=== PATIENT | female | born 1950 | race African-American/Black ===

== ENCOUNTER 2017-04-05 08:57 | Outpatient (CLI) | payer MEDICARE, MEDICAID ==
--- NOTE | 2017-04-05 14:05 | Diagnostic Imaging Report ---
Indication: SCREEN Technique: Bilateral Craniocaudal and mediolateral oblique views were obtained. Cleavage view also obtained. Comparison: 03/30/2013 Findings: The breasts demonstrate scattered fibroglandular densities. No parenchymal asymmetry nor architectural distortion. . No dominant masses nor suspicious clustered microcalcifications. No skin thickening nor nipple retraction. No axillary adenopathy. No significant interim change. Impression: No mammographic evidence of malignancy. Routine annual rescreening recommended. BI-RADS category one-negative. Breast density BI-RADS type B.
== END 2017-04-05 10:57 | disposition home or self-care (01) ==
LOC: MAMMO 08:57
DX: Z12.31 Encounter for screening mammogram for malignant neoplasm of breast (principal)
CPT/HCPCS: 77067

== ENCOUNTER 2018-03-03 15:22 | Emergency (ER) | payer MEDICARE, MEDICAID ==
[~2018-03-03] VITALS: Ht 160 cm; Wt 93.4 kg
[2018-03-03 15:54] VITALS: BP 131/87
[2018-03-03] MEDS ORDERED: HYDROCODON-ACE1 EA13 ORAL (15:58)
[2018-03-03] MEDS ORDERED: HYDROcodone/Acetamin 10/325 tab ORAL ONE (16:15)
[2018-03-03 17:03] VITALS: BP 141/80
--- NOTE | 2018-03-03 17:03 | Emergency Room Report ---
History of Present Illness General Chief Complaint: Pain Source: Patient Present Illness HPI Patient presents with complaints of left knee pain Patient had apparently just had MRI done of her left knee at the x-ray department complained of pain and was brought to the emergency room Patient reports that she has an appointment to follow-up with her primary physician with the results Denies any recent fall or trauma denies any chest pain or shortness of breath Denies any calf swelling pain is worse with ambulation better with rest Allergies: Coded Allergies: No Known Allergies (Unverified , 03/03/18) Patient History Past Medical History: see triage record Pertinent Family History: none Reviewed Nursing Documentation: PMH: Agreed; PSxH: Agreed Nursing Documentation-PMH Hx Hypertension: Yes Review of Systems All Other Systems: negative except mentioned in HPI Physical Exam Vital Signs Date Time Temp Pulse Resp B/P (MAP) Pulse Ox O2 Delivery O2 Flow Rate FiO2 03/03/18 15:36 97.8 77 16 131/87 95 Room Air 97.9 Sp02 EP Interpretation: reviewed, normal General Appearance: well appearing, no apparent distress Head: normocephalic, atraumatic Eyes: bilateral eye PERRL, bilateral eye EOMI ENT: hearing grossly normal, normal pharynx Neck: full range of motion, supple Respiratory: lungs clear Cardiovascular #1: regular rate, rhythm Gastrointestinal: non tender, soft Musculoskeletal: other - Tender on palpation of the left knee, no obvious laxity, sensory is intact no obvious effusion, Neurologic: alert, oriented x3 Skin: no rash, warm/dry Lymphatic: no adenopathy Medical Decision Making Diagnostic Impression: Primary Impression: knee pain ER Course Patient presents with a fairly chronic complain of knee pain On review of CURES patient was getting consistent medication including opiates from primary physician Patient is recommended to follow-up with her physician for further prescription Her pain was treated in the emergency room And patient stable for close outpatient follow-up Last Vital Signs Date Time Temp Pulse Resp B/P (MAP) Pulse Ox O2 Delivery O2 Flow Rate FiO2 03/03/18 16:27 97.9 03/03/18 15:54 77 16 131/87 95 Room Air Status: improved Disposition: HOME, SELF-CARE Condition: Improved Referrals: iPerre Pablo MD (PCP) Patient Instructions: Knee Pain, [id number] Additional Instructions: Patient is provided with the discharge instructions notified to follow up with primary doctor in the next 2-3 days otherwise return to the er with any worsening symptoms. Please note that this report is being documented using DRAGON technology. This can lead to erroneous entry secondary to incorrect interpretation by the dictating instrument. Marcos Monge DO Mar 03, 2018 17:03
== END 2018-03-03 17:03 | disposition home or self-care (01) ==
LOC: EMR 16:39
DX: M25.562 Pain in left knee (principal); I10 Essential (primary) hypertension
CPT/HCPCS: 99282

== ENCOUNTER → 2018-03-03 | Outpatient (CLI) | payer MEDICARE, MEDICAID ==
[~2018-03-03] MED LIST: HYDROCODON-ACE1 EA13 ORAL
== END | disposition home or self-care (01) ==
LOC: MRI 13:38
DX: M25.562 Pain in left knee (principal)